=== PATIENT | male | born 1995 | race Caucasian/White ===

== ENCOUNTER 2016-09-05 22:16 | Emergency (ER) | payer MEDICAID, OTHER ==
[~2016-09-05] VITALS: Ht 171.4 cm; Wt 68.2 kg
[~2016-09-05 22:16] MED LIST: FLUO20CA30 PO
[2016-09-06] MEDS ORDERED: SULFAMETHOX/TRIMETH DS 800-160 MG/TABLET PO ONE (00:45)
[2016-09-06 01:51] VITALS: BP 131/75
== END 2016-09-06 01:53 | disposition home or self-care (01) ==
LOC: EMS 22:17
DX: L73.9 Follicular disorder, unspecified (principal); S20.96XA Insect bite (nonvenomous) of unspecified parts of thorax, initial encounter; Y93.89 Activity, other specified; W57.XXXA Bitten or stung by nonvenomous insect and other nonvenomous arthropods, initial encounter; Y99.8 Other external cause status; Y92.89 Other specified places as the place of occurrence of the external cause
CPT/HCPCS: 99283